=== PATIENT | male | born 1990 | race Caucasian/White ===

== ENCOUNTER 2017-04-21 21:18 | Emergency (ER) | payer BC ==
[2017-04-21 21:31] VITALS: BP 159/97; PULSE 90; O2SAT 98
[2017-04-21] MEDS ORDERED: Rocephin 1000 MG INJ IM ONE (21:32)
[2017-04-21] MEDS ORDERED: NORCO 5/325 MG PO ONE (21:33)
[2017-04-21] MEDS ORDERED: Rocephin 1000 MG INJ ONE (21:38)
[2017-04-21] MEDS ORDERED: NORCO 5/325 MG ONE (21:38)
--- NOTE | 2017-04-21 21:39 | ERPHSYRPT ---
- History of Present Illness Time Seen by Provider: 04/21/17 21:26 Source: patient Exam Limitations: no limitations Patient Subjective Stated Complaint: feeling generally bad, fever a day ago, cough, nausea, no vomiting, tmax 100.1 Triage Nursing Assessment: AAOx 4, fever at home, c/o "clogged" ears, nausea, no vomiting or diarrhea Physician History: FOR THE PAST 4 DAYS PT HAS HAD COUGH SOMETIMES PRODUCTIVE OF CLEAR PHLEGM, SINUS DRAINAGE, NAUSEA, CLOGGED EARS AND FEVER UP TO 100.1 DEGREES; FOR THE PAST 2 DAYS A DECREASED APPETITE. Allergies/Adverse Reactions: No Known Drug Allergies Allergy (Unverified 04/12/15 16:18) Home Medications: No Home Meds [No Home Meds] 1 ea KHRIS 04/12/15 [History] Hx Tetanus, Diphtheria Vaccination/Date Given: Yes Hx Influenza Vaccination/Date Given: No Hx Pneumococcal Vaccination/Date Given: No Immunizations Up to Date: Yes - Review of Systems Constitutional: Fever Ears, Nose, & Throat: Sinus Drainage, Other (CLOGGED EARS) Respiratory: Cough Abdominal/Gastrointestinal: Nausea, Appetite Changes (DECREASED), No Vomiting, No Diarrhea All Other Systems: Reviewed and Negative - Past Medical History Pertinent Past Medical History: No - Past Surgical History Past Surgical History: No - Social History Smoking Status: Never smoker Exposure to second hand smoke: No Drug Use: none Patient Lives Alone: No - Nursing Vital Signs Nursing Vital Signs: Initial Vital Signs Temperature 97.3 F 04/21/17 21:27 Pulse Rate 90 04/21/17 21:27 Respiratory Rate 20 04/21/17 21:27 Blood Pressure 159/97 04/21/17 21:27 O2 Sat by Pulse Oximetry 98 04/21/17 21:27 Pain Scale Pain Intensity 0 - Physical Exam General Appearance: alert Eye Exam: PERRL/EOMI Ears, Nose, Throat Exam: TMs normal, moist mucous membranes, pharyngeal erythema Neck Exam: normal inspection Respiratory Exam: lungs clear Cardiovascular Exam: normal heart sounds Gastrointestinal/Abdomen Exam: soft, normal bowel sounds Back Exam: normal range of motion Extremity Exam: normal inspection, No pedal edema Neurologic Exam: alert, cooperative Skin Exam: warm, dry SpO2 Interpretation: normal SpO2: 98 Oxygen Delivery: Room Air - Course Nursing assessment & vital signs reviewed: Yes Ordered Tests: Medication Summary Generic Name Dose Route Start Last Admin Trade Name Freq PRN Reason Stop Dose Admin Hydrocodone Bitart/Acetaminophen 2 tab 04/21/17 21:33 Onida 5/325 Mg PO 04/21/17 21:34 STAT ONE Ceftriaxone Sodium 1,000 mg 04/21/17 21:32 Rocephin 1000 Mg Inj IM 04/21/17 21:33 STAT ONE - Departure Time of Disposition: 21:43 Departure Disposition: Home Clinical Impression: PHARYNGITIS Condition: Stable Critical Care Time: No Referrals: RAHEL COBOS [Primary Care Provider] - Instructions: Fever, Adult (DC) Additional Instructions: FOLLOW UP WITH PRIVATE DOCTOR TOMORROW. Prescriptions: Guaifenesin/Codeine Phosphate [Robitussin AC Syrup] 10 ml PO Q4H PRN PRN #120 ml PRN Reason: Cough Naproxen [Naprosyn] 500 mg PO Q12H PRN PRN #20 tablet PRN Reason: Pain Azithromycin 250 mg [Zithromax 250 MG TABLET] 250 mg PO ZPACK #6 tablet
== END 2017-04-21 22:07 | disposition home or self-care (01) ==
LOC: ED 21:18
DX: J02.9 Acute pharyngitis, unspecified (principal)
CPT/HCPCS: 99283; J0696; A9270-GY

== ENCOUNTER 2023-11-06 08:11 | Day surgery (SDC) | payer BC ==
[2023-11-06] MEDS ORDERED: Lactated Ringers 1,000 ML IV ONE ×2 (08:17→12:13)
[2023-11-06] MEDS: Lactated Ringers 1,000 ML IV SCH (08:21)
[2023-11-06] MEDS: MEFOXIN 2 GM PREMIX** 2 GM/50 ML ML IV SCH (08:21)
[2023-11-06 08:36] VITALS: RESP 18; O2SAT 98
[2023-11-06] MEDS ORDERED: Sensorcaine 0.25% 10 ML ONE ×3 (09:50→11:46)
[2023-11-06] MEDS ORDERED: Pepcid 20 MG VIAL IV ONE (10:32)
[2023-11-06] MEDS: Pepcid 20 MG VIAL IV ONE (10:37)
[2023-11-06] MEDS ORDERED: Versed 2 MG/2 ML Injection ONE (11:26)
[2023-11-06] MEDS ORDERED: Zofran 4 MG/2 ML VIAL ONE ×2 (11:30→13:19)
[2023-11-06] MEDS ORDERED: DIPRIVAN 200 MG/20 ML IV ONE (11:30)
[2023-11-06] MEDS ORDERED: ROCURONIUM BROMIDE IV ONE (11:30)
[2023-11-06] MEDS ORDERED: Decadron 4 MG INJ ONE (11:30)
[2023-11-06] MEDS ORDERED: Quelicin Fliptop 200 MG/10 ML ONE (11:30)
[2023-11-06] MEDS: Versed 2 MG/2 ML Injection IV PRN (11:32)
[2023-11-06] MEDS ORDERED: SUBLIMAZE 100 MCG/2 ML ONE ×2 (11:35→12:41)
[2023-11-06] MEDS ORDERED: BRIDION 200MG/2ML IV ONE (12:20)
[2023-11-06] MEDS ORDERED: TORAdol 30 mg Injection ONE (12:20)
[2023-11-06] MEDS ORDERED: Hydromorphone 1 mg/ml Injection ONE (12:47)
[2023-11-06 13:48] VITALS: TEMP 97.8
[2023-11-06 14:05] VITALS: BP 157/96; PULSE 80
--- NOTE | 2023-11-07 08:48 | OP ---
SURGERY DATE: 11/06/2023 6508 - [id number] PREOPERATIVE DIAGNOSIS: Cholecystitis. POSTOPERATIVE DIAGNOSIS: Cholecystitis. PROCEDURE PERFORMED: Laparoscopic cholecystectomy. SURGEON: Delmar Fair MD ANESTHESIA: General. ESTIMATED BLOOD LOSS: Minimal. PATIENT CONDITION: Stable. COMPLICATIONS: None. SPECIMENS: Gallbladder. INDICATIONS: The patient is a 33-year-old that presents with chronic cholecystis symptoms with imaging showing gallbladder sludge. Discussion had with patient, risk of infection, bleeding, injury to nearby structure, hernia, failure to resolve symptoms. He elected to proceed with surgery. FINDINGS: Critical view, sludge in the gallbladder. DESCRIPTION OF PROCEDURE AND FINDINGS: The patient was brought to the operating room. General anesthesia induced. Routinely positioned, prepped, and draped. Time-out performed. Received preoperative antibiotics. The 5 mm Optiview trocar placed in the left upper quadrant. Pneumoperitoneum established. A 5 mm supraumbilical trocar placed. Two additional 5 mm trocars placed in right upper quadrant. The patient was positioned. Gallbladder dissected out. Critical view obtained. Cystic duct and artery taken with 5 mm metal clip lance crewmember and divided, taken off the gallbladder bed, incised, suctioned out. There was thick sludge, bile in the gallbladder which was suctioned out. Clips are in good position. There is good hemostasis. The right medial trocar site used for extraction. No fascial spreading was required. The other trocars were removed under direct visualization. The supraumbilical used and then removed. Skin was closed with 4-0 Vicryl sutures. Marcaine had been injected. Steri-Strips and dressings applied. All counts were correct. The patient tolerated the procedure well. Patient was extubated and taken to Recovery in stable condition.
== END 2023-11-06 14:06 | disposition home or self-care (01) ==
LOC: SDC 08:11
PROVIDERS: ATTEND Surgery
DX: K81.9 Cholecystitis, unspecified (principal)
CPT/HCPCS: J0330; J0694; J1100; J1170; J1885; J2250; J2405; J2704; J3010; L0625

== ENCOUNTER 2024-01-03 08:15 | Emergency (ER) | payer BC ==
[2024-01-03 08:34] VITALS: TEMP 97.9
[2024-01-03 09:12] LABS: Absolute Neutrophil Ct (ANC) 7.34 x10^3/uL (1.78-5.38); BASOPHIL % 0.2 % (0.2-1.2); Basophil (Absolute #) 0.02 x10^3/uL (0.01-0.08); Eosinophil % 0.3 % (0.8-7.0); Eosinophil (Absolute #) 0.03 x10^3/uL (0.04-0.54); Hematocrit 48.9 % (40.1-51.0); IMMATURE GRAN # 0.04 x10^3u/L (0.001-0.031); IMMATURE GRAN % 0.4 % (0.001-0.429); Lymphocyte (Absolute #) 1.46 x10^3/uL (1.32-3.57); Lymphocytes % 15.5 % (21.8-53.1); Mean Cell Volume 86.1 fL (79.0-92.2); Mean Corpuscular Hemoglobin 29.9 pg (25.7-32.2); Mean Corpuscular Hgb Concent. 34.8 g/dL (32.3-36.5); Mean Platelet Volume 10.6 fL (9.4-12.4); Monocyte (Absolute #) 0.52 x10^3/uL (0.30-0.82); Monocytes % 5.5 % (5.3-12.2); Neutrophil % 78.1 % (34.0-67.9); Platelet Count 203 x10^3/uL (163-337); Red Blood Count 5.68 x10^6/uL (4.63-6.08); Red Cell Distribution Width 12.4 % (11.6-14.4); White Blood Count 9.4 x10^3/uL (4.23-9.07)
[2024-01-03] MEDS ORDERED: Sodium Chloride 0.9% 1000 ML 1,000 ML ONE (09:13)
[2024-01-03] MEDS ORDERED: PROTONIX 40 MG IV IV ONE (09:13)
[2024-01-03 09:29] LABS: Appearance Clear (Clear); Bacteria None Seen /HPF (None Seen); Bilirubin Negative (Negative); Blood Negative (Negative); Epithelial Cells None Seen /HPF (None Seen); Glucose, Urine Negative (Negative); Hyaline Casts NONE SEEN /LPF (0-2); Ketones Negative (Negative); Leukocyte Esterase Negative (Negative); Nitrite Negative (Negative); Ph 8.5 (4.6-8.0); Protein,Urine Dip Trace (Negative); RBC 0-2 /HPF (0-5); Urobilinogen 0.2 mg/dL (0.2); WBC 0-2 /HPF (0-5)
[2024-01-03 09:32] LABS: ALBUMIN 4.6 g/dL (3.5-5.0); ANION GAP 14.6 MEQ/L (5-15); BILIRUBIN,TOTAL 0.9 mg/dL (0.2-1.3); Calcium 10.1 mg/dL (8.4-10.2); Creatinine 1 1.02 mg/dL (0.66-1.25); EST GLOMERULAR FILTRATION RATE 100.8 ML/MIN; Potassium 4.1 mmol/L (3.5-5.1); Total Protein 7.7 g/dL (6.3-8.2)
[2024-01-03 09:43] LABS: Amphetamine,Urine NEGATIVE (NEGATIVE); Barbiturate,Urine NEGATIVE (NEGATIVE); Benzodiazepine,Urine NEGATIVE (NEGATIVE); Cocaine,Urine NEGATIVE (NEGATIVE); Methadone,Urine NEGATIVE (NEGATIVE); Opiate,Urine NEGATIVE (NEGATIVE); PCP,Urine NEGATIVE (NEGATIVE); THC,Urine NEGATIVE (NEGATIVE)
--- NOTE | 2024-01-03 09:47 | ERPHSYRPT ---
- History of Present Illness Time Seen by Provider: 01/03/24 09:44 Historian: patient, family Exam Limitations: no limitations Patient Subjective Stated Complaint: Abdominal pain- left side Triage Nursing Assessment: Patient ambulated back to ED and transferred self to bed. Patient A+O X3. Patient's skin pink, warm and dry. Patient complains of l eft sided abdominal pain 4/10 currently that started on Friday and has gotten worse. Patient complains of nausea, but denies vomiting or diarrhea. Abdomen soft and round with Hypoactive bowel sounds X 4. Physician History: Patient complains of left sided abdominal pain 4/10 currently that started on Friday and has gotten worse. Patient complains of nausea, but denies vomiting or diarrhea. Timing/Duration: day(s) (Four days ago) Activities at Onset: none Abdominal Pain Onset Location: RLQ, LLQ, periumbilical, suprapubic Pain Radiation: no radiation Severity of Pain-Max: moderate Severity of Pain-Current: moderate Modifying Factors: Improves With: nothing Associated Symptoms: denies symptoms Previous symptoms: no prior history Body Map: 1 - Area of abdominal pain Allergies/Adverse Reactions: No Known Drug Allergies Allergy (Verified 01/03/24 08:22) Home Medications: Famotidine [Pepcid] 1 tab PO DAILY 01/03/24 [History] Hx Tetanus, Diphtheria Vaccination/Date Given: No Hx Influenza Vaccination/Date Given: No Hx Pneumococcal Vaccination/Date Given: No Immunizations Up to Date: Yes Travel Risk - International Travel Have you traveled outside of the country in past 3 weeks: No - Emerging Infectious Disease Are you exhibiting symptoms associated with any current EIDs: No - Review of Systems Constitutional: No Fever, No Chills Eyes: No Symptoms Ears, Nose, & Throat: No Symptoms Respiratory: No Cough, No Dyspnea Cardiac: No Chest Pain, No Edema, No Syncope Abdominal/Gastrointestinal: Abdominal Pain, No Nausea, No Vomiting, No Diarrhea Genitourinary Symptoms: No Dysuria Musculoskeletal: No Back Pain, No Neck Pain Skin: No Rash Neurological: No Dizziness, No Focal Weakness, No Sensory Changes Psychological: No Symptoms Endocrine: No Symptoms All Other Systems: Reviewed and Negative - Past Medical History Pertinent Past Medical History: Yes Neurological History: No Pertinent History ENT History: No Pertinent History Cardiac History: No Pertinent History Respiratory History: No Pertinent History Endocrine Medical History: No Pertinent History Musculoskeletal History: No Pertinent History GI Medical History: GERD, Gallbladder Disease History: No Pertinent History Psycho-Social History: No Pertinent History Male Reproductive Disorders: No Pertinent History - Past Surgical History Past Surgical History: Yes Neuro Surgical History: No Pertinent History Cardiac: No Pertinent History Respiratory: No Pertinent History Gastrointestinal: Cholecystectomy Musculoskeletal: No Pertinent History Male Surgical History: No Pertinent History - Social History Smoking Status: Former smoker Exposure to second hand smoke: No Drug Use: none Patient Lives Alone: No - Social Determinants of Health Will the patient participate in the screening: Yes Do you worry about a steady place to live?: No Do you have any problems with any of the following?: No known problems In the past 12 months,have you had to go without utilities?: No Transportation Issues: No Has anyone in your support network made you feel unsafe?: No Have you or anyone in your house had to go without enough: No - Nursing Vital Signs Nursing Vital Signs: Initial Vital Signs Pulse Rate 85 01/03/24 08:24 Respiratory Rate 25 H 01/03/24 08:24 Blood Pressure 164/107 01/03/24 08:24 O2 Sat by Pulse Oximetry 100 01/03/24 08:24 Pain Scale Pain Intensity 0 - Physical Exam General Appearance: no apparent distress, alert Eye Exam: PERRL/EOMI, eyes nml inspection Ears, Nose, Throat Exam: normal ENT inspection, pharynx normal, moist mucous membranes Neck Exam: normal inspection, non-tender, supple, full range of motion Respiratory Exam: normal breath sounds, lungs clear, No respiratory distress Cardiovascular Exam: regular rate/rhythm, normal heart sounds Gastrointestinal/Abdomen Exam: soft, tenderness (Periumbilical area, RLQ, LLQ), No mass Back Exam: normal inspection, normal range of motion, No CVA tenderness, No vertebral tenderness Extremity Exam: normal inspection, normal range of motion, pelvis stable Neurologic Exam: alert, oriented x 3, cooperative, normal mood/affect, nml cerebellar function, sensation nml, No motor deficits Skin Exam: normal color, warm, dry SpO2: 97 - Course Nursing assessment & vital signs reviewed: Yes - CT Exams Abdomen/Pelvis CT Interpretation: Tele-radiologist Report (No acute findings) Ordered Tests: Active Orders 24 hr Category Date Time Status NPO (ED) STAT Care 01/03/24 08:57 Active ABDOMEN AND PELVIS W CONTRAST [CT] Stat Exams 01/03/24 08:58 Completed AMYLASE Stat Lab 01/03/24 09:11 Completed CBC W DIFF Stat Lab 01/03/24 09:11 Completed CMP Stat Lab 01/03/24 09:11 Completed LIPASE Stat Lab 01/03/24 09:11 Completed UA W/RFX UR CULTURE Stat Lab 01/03/24 09:12 Completed Urine Triage Profile Stat Lab 01/03/24 09:12 Completed Medication Summary Discontinued Medications Generic Name Dose Route Start Last Admin Trade Name Freq PRN Reason Stop Dose Admin Sodium Chloride 1,000 mls @ 999 mls/hr 01/03/24 08:57 01/03/24 09:52 Sodium Chloride 0.9% 1000 Ml IV 01/03/24 09:57 999 mls/hr .Q1H1M STA Administration Sodium Chloride Confirm 01/03/24 09:13 Sodium Chloride 0.9% 1000 Ml Administered 01/03/24 09:14 Dose 1,000 mls @ ud .ROUTE .STK-MED ONE Pantoprazole Sodium 40 mg 01/03/24 08:57 01/03/24 09:51 Pantoprazole 40 Mg Vial IV 01/03/24 08:58 40 mg STAT ONE Administration Pantoprazole Sodium Confirm 01/03/24 09:13 Pantoprazole 40 Mg Vial Administered 01/03/24 09:14 Dose 40 mg IV .STK-MED ONE Lab/Rad Data: Laboratory Result Diagrams 01/03/24 09:11 01/03/24 09:11 Laboratory Results 01/03/24 01/03/24 01/03/24 Range/Units 09:12 09:12 09:11 WBC (4.23-9.07) x10^3/uL RBC (4.63-6.08) x10^6/uL Hgb (13.7-17.5) g/dL Hct (40.1-51.0) % MCV (79.0-92.2) fL MCH (25.7-32.2) pg MCHC (32.3-36.5) g/dL RDW (11.6-14.4) % Plt Count (163-337) x10^3/uL MPV (9.4-12.4) fL Gran % (34.0-67.9) % Immature Gran % (Auto) (0.001-0.429) % Nucleat RBC Rel Count (0.00-0.2) % Eos # (Auto) (0.04-0.54) x10^3/uL Immature Gran # (Auto) (0.001-0.031) x10^3u/L Absolute Lymphs (auto) (1.32-3.57) x10^3/uL Absolute Monos (auto) (0.30-0.82) x10^3/uL Absolute Nucleated RBC (0.00-0.012) x10^3u/L Lymphocytes % (21.8-53.1) % Monocytes % (5.3-12.2) % Eosinophils % (0.8-7.0) % Basophils % (0.2-1.2) % Absolute Granulocytes (1.78-5.38) x10^3/uL Basophils # (0.01-0.08) x10^3/uL Sodium 139 (135-145) mmol/L Potassium 4.1 (3.5-5.1) mmol/L Chloride 105 (98-107) mmol/L Carbon Dioxide 24 (22-30) mmol/L Anion Gap 14.6 (5-15) MEQ/L BUN 14 (9-20) mg/dL Creatinine 1.02 (0.66-1.25) mg/dL Estimated GFR 100.8 ML/MIN Glucose 108 H (74-106) mg/dL Calcium 10.1 (8.4-10.2) mg/dL Total Bilirubin 0.90 (0.2-1.3) mg/dL AST 28 (17-59) U/L ALT 35 (0-50) U/L Alkaline Phosphatase 84 (38-126) U/L Serum Total Protein 7.7 (6.3-8.2) g/dL Albumin 4.6 (3.5-5.0) g/dL Amylase 82 (30-110) U/L Lipase 61 (23-300) U/L Urine Color Yellow (Yellow) Urine Appearance Clear (Clear) Urine pH 8.5 A (4.6-8.0) Ur Specific Mcdonough 1.020 (1.005-1.030) Urine Protein Trace A (Negative) Urine Glucose (UA) Negative (Negative) mg/dL Urine Ketones Negative (Negative) Urine Blood Negative (Negative) Urine Nitrite Negative (Negative) Urine Bilirubin Negative (Negative) Urine Urobilinogen 0.2 (0.2) mg/dL Ur Leukocyte Esterase Negative (Negative) U Hyaline Cast (Auto) NONE SEEN (0-2) /LPF Urine Microscopic RBC 0-2 (0-5) /HPF Urine Microscopic WBC 0-2 (0-5) /HPF Ur Epithelial Cells None Seen (None Seen) /HPF Urine Bacteria None Seen (None Seen) /HPF Urine Culture Reflexed NO (NO) Urine Opiates Level NEGATIVE (NEGATIVE) Ur Methadone NEGATIVE (NEGATIVE) Urine Barbiturates NEGATIVE (NEGATIVE) Ur Phencyclidine (PCP) NEGATIVE (NEGATIVE) Urine Amphetamine NEGATIVE (NEGATIVE) U Benzodiazepine Level NEGATIVE (NEGATIVE) Urine Cocaine NEGATIVE (NEGATIVE) Urine Marijuana (THC) NEGATIVE (NEGATIVE) 01/03/24 Range/Units 09:11 WBC 9.4 H (4.23-9.07) x10^3/uL RBC 5.68 (4.63-6.08) x10^6/uL Hgb 17.0 (13.7-17.5) g/dL Hct 48.9 (40.1-51.0) % MCV 86.1 (79.0-92.2) fL MCH 29.9 (25.7-32.2) pg MCHC 34.8 (32.3-36.5) g/dL RDW 12.4 (11.6-14.4) % Plt Count 203 (163-337) x10^3/uL MPV 10.6 (9.4-12.4) fL Gran % 78.1 H (34.0-67.9) % Immature Gran % (Auto) 0.4 (0.001-0.429) % Nucleat RBC Rel Count 0.0 (0.00-0.2) % Eos # (Auto) 0.03 L (0.04-0.54) x10^3/uL Immature Gran # (Auto) 0.04 H (0.001-0.031) x10^3u/L Absolute Lymphs (auto) 1.46 (1.32-3.57) x10^3/uL Absolute Monos (auto) 0.52 (0.30-0.82) x10^3/uL Absolute Nucleated RBC 0.00 (0.00-0.012) x10^3u/L Lymphocytes % 15.5 L (21.8-53.1) % Monocytes % 5.5 (5.3-12.2) % Eosinophils % 0.3 L (0.8-7.0) % Basophils % 0.2 (0.2-1.2) % Absolute Granulocytes 7.34 H (1.78-5.38) x10^3/uL Basophils # 0.02 (0.01-0.08) x10^3/uL Sodium (135-145) mmol/L Potassium (3.5-5.1) mmol/L Chloride (98-107) mmol/L Carbon Dioxide (22-30) mmol/L Anion Gap (5-15) MEQ/L BUN (9-20) mg/dL Creatinine (0.66-1.25) mg/dL Estimated GFR ML/MIN Glucose (74-106) mg/dL Calcium (8.4-10.2) mg/dL Total Bilirubin (0.2-1.3) mg/dL AST (17-59) U/L ALT (0-50) U/L Alkaline Phosphatase (38-126) U/L Serum Total Protein (6.3-8.2) g/dL Albumin (3.5-5.0) g/dL Amylase (30-110) U/L Lipase (23-300) U/L Urine Color (Yellow) Urine Appearance (Clear) Urine pH (4.6-8.0) Ur Specific Mcdonough (1.005-1.030) Urine Protein (Negative) Urine Glucose (UA) (Negative) mg/dL Urine Ketones (Negative) Urine Blood (Negative) Urine Nitrite (Negative) Urine Bilirubin (Negative) Urine Urobilinogen (0.2) mg/dL Ur Leukocyte Esterase (Negative) U Hyaline Cast (Auto) (0-2) /LPF Urine Microscopic RBC (0-5) /HPF Urine Microscopic WBC (0-5) /HPF Ur Epithelial Cells (None Seen) /HPF Urine Bacteria (None Seen) /HPF Urine Culture Reflexed (NO) Urine Opiates Level (NEGATIVE) Ur Methadone (NEGATIVE) Urine Barbiturates (NEGATIVE) Ur Phencyclidine (PCP) (NEGATIVE) Urine Amphetamine (NEGATIVE) U Benzodiazepine Level (NEGATIVE) Urine Cocaine (NEGATIVE) Urine Marijuana (THC) (NEGATIVE) - Progress Progress: improved, pain not gone completely Counseled pt/family regarding: lab results, diagnosis, need for follow-up, rad results Medical Desision Making - Diagnostic Testing Diagnostic test were ordered, analyzed, and reviewed by me: Yes Radiological Interpretation: Teleradiologist Report - Risk of complications Low Risk: Low risk of morbidity from additional dx testing or treatment - Departure Departure Disposition: Home Clinical Impression: Periumbilical abdominal pain Condition: Stable Critical Care Time: No Referrals: STEPHANIE TORRES MD [Primary Care Provider] - Follow up/PCP as directed Instructions: Severe Abdominal Pain, Adult (DC), Abdominal pain Additional Instructions: ABDOMINAL PAIN 1. There are several different causes for abdominal pain, some of which may not be able to be identified on initial examination. 2. The important thing to remember is that bodily functions can change in a short period of time. If you notice any of the following symptoms, return to the emergency department or consult your doctor immediately: A. Worsening pain or no improvement in the next 12 hours. B. Increasing, severe abdominal pain C. Blood in stool D. Black stools E. Persistent vomiting F. Fever or chills or other symptoms Discharge/Care Plan MICHROXANN was seen on 01/03/24 in the Emergency Room. The patient was counseled regarding Diagnosis,Lab results, Imaging studies, need for follow up and when to return to the Emergency Room. Prescriptions given: Discharge Note I have spoken with the patient and/or caregivers. I have explained the patient's condition, diagnosis and treatment plan based on the information available to me at this time. I have answered the patient's and/or caregiver's questions and addressed any concerns. The patient and/or caregivers have as good understanding of the patient's diagnosis, condition and treatment plan as can be expected at this point. The vital signs have been stable. The patient's condition is stable and appropriate for discharge from the emergency department. The patient will pursue further outpatient evaluation with the primary care physician or other designated or consulting physician as outlined in the discharge instructions. The patient and/or caregivers are agreeable to this plan of care and follow-up instructions have been explained in detail. The patient and/or caregivers have received these instruction. The patient/and or caregivers are aware that any significant change in condition or worsening of symptoms should prompt an immediate return to this or the closest emergency department or call 911. MICHROXANN was seen on 01/03/24 n the Emergency Room. At that time you were treated for an emergent condition, during your visit Laboratory, Radiology and/or other procedures may have been ordered. It is very important that you follow-up with your Primary Care Physician STEPHANIE TORRES within the next 24-48 hours to review your Emergency Room visit and the final results of testing that was ordered. Some test results such as Urine Cultures, Blood Cultures, and other cultures if ordered will not be finalized for 24-48 hours. If you do not have a Primary Care Provider please call the medical records department at [phone] ext [phone] to obtain a copy of your results or you may sign into our patient portal to obtain these results by visiting us @ [email or web address] and completing the following steps: 1. Click on the Patient Portal link 2. Click the Patient Self Enrollment Link to complete the enrollment form and entering your 3. Once the enrollment form is completed you will receive an email with a temporary ID and password at the email address you provided. 4. Next choose a user name and password. Your user name must be at least 4 characters long and your password must be at least 4 characters long. 5. Choose a security question from the list and provide your answer to the question. If you already have signed into the Health Portal you may access your Health Care Information 07/10 by the following steps: 1. Login to our website @ [email or web address] 2. Enter your original user name and password. FAQS The [facility] Health Portal is an online tool that contains your Lab Results, Radiology Reports, Visit History, Discharge Instructions and Health Summary Lab and Radiology Results will not be available for 72 hours on the portal. The Portal is a secure site, passwords are encryted and URLs are re-written so they cannot be copied and pasted. You and authorized family members are the only ones who can access your Portal. Also there is a timeout feature that protects your information if you leave the Portal page open. If you have technical difficulty please use the Contact Us link on the page this will allow you to submit any questions you have regarding the Portal or you may contact the Medical Record Department at [phone] ext [phone]. Prescriptions: Dicyclomine HCl 20 mg [Bentyl 20 mg] 20 mg PO TID #15 tablet
[2024-01-03] MEDS: PROTONIX 40 MG IV IV ONE (09:51)
[2024-01-03] MEDS: Sodium Chloride 0.9% 1000 ML 1,000 ML IV STA (09:52)
--- NOTE | 2024-01-03 10:34 | XRAY ---
CLINICAL HISTORY: periumbilical abdominal pain COMPARISON: None. TECHNIQUE: Contrast-enhanced CT of the abdomen and pelvis was performed, with the following protocol: axial images with, and reconstructed coronal and sagittal images.100cc Isovue 370 Intravenous contrast was administered. One of the following dose reduction techniques was utilized for this exam: Automated exposure control, adjustment of the mA and/or kV according to patient size, and use of iterative reconstruction. DLP: 1134.96 mGy.cm , CTDI: 19.17 mGy FINDINGS: Normal-appearing lung bases Abdomen: Liver: Normal in size, shape, and density. No focal lesions, cysts, or masses were identified. Hepatic vasculature and biliary ducts are unremarkable. Gallbladder and Biliary System: Gallbladder not visualized, gallbladder fossa shows few radiodense clips, suggests already known postcholecystectomy status The common bile duct is normal in caliber without dilation. Pancreas: Pancreatic head, body, and tail are visualized and appear normal in size and density. No pancreatic masses or calcifications were noted. The pancreatic duct is not dilated. Spleen: Normal in size, shape, and density. No splenic lesions or masses were identified. Kidneys and Adrenal Glands: Both kidneys are normal in size, shape, and position. Cortical thickness is within normal limits. No renal calculi or hydronephrosis. Adrenal glands are unremarkable with no evidence of masses or hyperplasia. Pelvis: Urinary Bladder: Normal in contour and wall thickness. No intraluminal lesions identified. Prostate: Normal in size and contour. No focal lesions or masses identified. Seminal Vesicles: Normal in size and appearance. No abnormalities noted. Rectum and Sigmoid Colon: Normal wall thickness and no evidence of mass. Peritoneal and Retroperitoneal Structures: No free fluid or abnormal fluid collections were identified within the abdomen or pelvis. No lymphadenopathy was noted. Bowel: The appendix is visualized, arising from the cecum and extends transversely to the central abdomen. No signs of inflammation around its. No periappendiceal free fluid seen. Few subcentimeter right ileocolic lymph nodes seen larger one measures 5.5 mm size Rest of the visualized bowel loops are normal in caliber and appearance. No evidence of bowel obstruction or wall thickening. Bones and Soft Tissues: Superior endplate Schmorl's nodes seen in the L2 and L3 lumbar vertebral bodies Pelvic bones and soft tissues are unremarkable. No fractures or abnormal masses were identified. IMPRESSION: 1. No evidence of acute abnormalities. Clinical correlation and follow-up are advised. 2. Postcholecystectomy status. 3. Contrast-enhanced CT of the abdomen and pelvis demonstrates normal findings without evidence of acute intra-abdominal pathology. Electronically Signed by: Peter Kan MD. (01/03/2024 10:30:57 EDT)
[2024-01-03 10:45] VITALS: O2SAT 97
[2024-01-03 10:47] VITALS: BP 147/101; PULSE 85; RESP 24
== END 2024-01-03 11:01 | disposition home or self-care (01) ==
LOC: ED 08:15
DX: R10.33 Periumbilical pain (principal); R11.0 Nausea; Z79.899 Other long term (current) drug therapy
CPT/HCPCS: 36000; 36415; 74177; 80053; 80307; 81001; 82150; 83690; 85025; 96360; 96374; 99284

== ENCOUNTER 2024-01-03 22:37 | Emergency (ER) | payer BC ==
[2024-01-03 22:59] VITALS: RESP 18; TEMP 96.8
[2024-01-03] MEDS ORDERED: XYLOCAINE VISCOUS 2% 15 ML CUP ONE (23:23)
[2024-01-03] MEDS ORDERED: MAALOX ES 30 ML UNIT DOSE ONE (23:23)
--- NOTE | 2024-01-03 23:24 | ERPHSYRPT ---
- History of Present Illness Time Seen by Provider: 01/03/24 23:10 Historian: patient Exam Limitations: no limitations Patient Subjective Stated Complaint: pt states he is still having stomach pain. pt states that it felt a little better after taking his pain meds. Triage Nursing Assessment: pt ambulated into the er; pt is axo x4; c/o abd; pt states 5/10 to abd; pt states that pain radiates to [place] flanks; abd is round, soft, non tender; hyperactive bowel sounds in all quads; skin PDW; no respiratory distress; hypertensive Physician History: 33yo m presents via private vehicle for abdominal discomfort. Pt was seen in ED this AM for same sx, was given bentyl and discharged home, had lab w/u and CT abd/pel w/ contrast that did not show any acute pathology. Pt reports his abdominal pain began again this evening after eating chicken noodle soup, eggs and toast. Pt denies any n/v/d. Pt does endorse some epigastric burning as well as some lower abdominal cramping. Pt reports some relief w/ defecation. Pt denies any hematochezia or hematemesis. Pt reports hx of similar sx intermittently for the past 10-15 yrs. Pt has hx of cholecystectomy. Pt reports long hx of alternating b/w being constipated and having bouts of diarrhea w/ abdominal discomfort. Timing/Duration: today, intermittent Activities at Onset: other (after eating) Quality: aching, cramping Abdominal Pain Onset Location: RLQ, LLQ, epigastric Pain Radiation: no radiation Severity of Pain-Max: moderate Severity of Pain-Current: mild Modifying Factors: Improves With: nothing Associated Symptoms: heartburn, No back, No diaphoresis, No diarrhea, No fever/chills, No nausea, No shortness of breath, No vomiting, No weakness Allergies/Adverse Reactions: No Known Drug Allergies Allergy (Verified 01/03/24 22:47) Home Medications: Famotidine [Pepcid] 1 tab PO DAILY 01/03/24 [History] Hx Tetanus, Diphtheria Vaccination/Date Given: No Hx Influenza Vaccination/Date Given: No Hx Pneumococcal Vaccination/Date Given: No Immunizations Up to Date: No Travel Risk - International Travel Have you traveled outside of the country in past 3 weeks: No - Emerging Infectious Disease Are you exhibiting symptoms associated with any current EIDs: Yes Symptoms: Abdominal Pain - Review of Systems Constitutional: No Fever, No Chills Respiratory: No Symptoms Cardiac: No Symptoms Abdominal/Gastrointestinal: Abdominal Pain, No Nausea, No Vomiting, No Diarrhea, No Constipation - Past Medical History Pertinent Past Medical History: Yes Neurological History: No Pertinent History ENT History: No Pertinent History Cardiac History: No Pertinent History Respiratory History: No Pertinent History Endocrine Medical History: No Pertinent History Musculoskeletal History: No Pertinent History GI Medical History: GERD, Gallbladder Disease History: No Pertinent History Psycho-Social History: No Pertinent History Male Reproductive Disorders: No Pertinent History - Past Surgical History Past Surgical History: Yes Neuro Surgical History: No Pertinent History Cardiac: No Pertinent History Respiratory: No Pertinent History Gastrointestinal: Cholecystectomy Genitourinary: No Pertinent History Musculoskeletal: No Pertinent History Male Surgical History: No Pertinent History - Social History Smoking Status: Former smoker Exposure to second hand smoke: No Drug Use: none Patient Lives Alone: No - Social Determinants of Health Will the patient participate in the screening: Yes Do you worry about a steady place to live?: No Do you have any problems with any of the following?: No known problems In the past 12 months,have you had to go without utilities?: No Transportation Issues: No Has anyone in your support network made you feel unsafe?: No Have you or anyone in your house had to go without enough: No - Nursing Vital Signs Nursing Vital Signs: Initial Vital Signs Temperature 96.8 F 01/03/24 22:48 Pulse Rate 72 01/03/24 22:48 Respiratory Rate 18 01/03/24 22:48 Blood Pressure 159/106 01/03/24 22:48 O2 Sat by Pulse Oximetry 98 01/03/24 22:48 Pain Scale Pain Intensity 2 - Physical Exam General Appearance: no apparent distress, alert Respiratory Exam: normal breath sounds, lungs clear, airway intact, No chest tenderness, No respiratory distress Cardiovascular Exam: regular rate/rhythm, normal heart sounds Gastrointestinal/Abdomen Exam: soft, normal bowel sounds, No tenderness, No distention, No guarding, No rebound SpO2 Interpretation: normal SpO2: 98 O2 Delivery: Room Air Ordered Tests: Medication Summary Discontinued Medications Generic Name Dose Route Start Last Admin Trade Name Freq PRN Reason Stop Dose Admin Al Hydrox/Mg Hydrox/Simethicone Confirm 01/03/24 23:23 Mag Hydrox/Al Hydrox/Simeth 30 Ml Udcup Administered 01/03/24 23:24 Dose 30 ml .ROUTE .STK-MED ONE Lidocaine HCl Confirm 01/03/24 23:23 Lidocaine Hcl 2% Viscous 15 Ml Udcup Administered 01/03/24 23:24 Dose 15 ml .ROUTE .STK-MED ONE Magnesium Hydroxide 45 ml 01/03/24 23:18 01/03/24 23:30 Mag Hydrx/Alum Hyd/Simeth/Lido 45 Ml Bottle PO 01/03/24 23:19 45 ml STAT ONE Administration - Progress Progress: improved Progress Note: 01/04/24 00:09 Pt reports improvement following GI cocktail i reviewed pt's labs and imaging from prior visit, no indication for further labs/imaging at this time discussed trial of bland diet, increase dietary fiber, increase intake of probiotic rich foods like yogurts/cottage cheese Medical Desision Making - Diagnostic Testing Diagnostic test were ordered, analyzed, and reviewed by me: No - Risk of complications Minimal Risk: Minimal risk of morbidity - Departure Departure Disposition: Home Clinical Impression: Abdominal discomfort, epigastric Condition: Stable Critical Care Time: No Referrals: STEPHANIE TORRES MD [Primary Care Provider] - Follow up/PCP as directed Additional Instructions: trial of bland diet, increase dietary fiber, increase intake of probiotic rich foods like yogurts/cottage cheese recommend OTC omeprazole daily for reflux symptoms recommend close follow up this week w/ PCP Dr Torres recommend plenty of oral hydration w/ clear liquids return to ED if: develop bloody vomiting or stools, become unable to tolerate oral intake, abdominal pain becomes unbearable
[2024-01-03] MEDS: GI COCKTAIL 45 ML (Maalox/Lidocaine) PO ONE (23:30)
[2024-01-04 00:04] VITALS: BP 161/100; PULSE 68
[2024-01-04 00:18] VITALS: O2SAT 98
== END 2024-01-04 00:26 | disposition home or self-care (01) ==
LOC: ED 22:37
DX: R10.13 Epigastric pain (principal)
CPT/HCPCS: 99282; A9270-GY